=== PATIENT | female | born 1985 | race African-American/Black ===

== ENCOUNTER 2020-10-31 19:50 | Inpatient (IN) | payer OTHER ==
[2020-10-31 21:00] VITALS: BMI 24.0
[2020-10-31 21:28] LABS: BASO % 0.3 % (0-2.0); EOS % 0.1 % (0-4.5); HEMATOCRIT 27.2 % (32.4-45.2); HEMOGLOBIN 8.6 GM/dL (10.7-15.3); LYMPH % 15.1 % (8-40); MCH 25.3 pg (25.7-33.7); MCHC 31.6 g/dl (32.0-36.0); MEAN CELL VOLUME 80.2 fl (80-96); MEAN PLT VOLUME 8.7 fl (7.5-11.1); MONO % 7.9 % (3.8-10.2); NEUT % 76.6 % (42.8-82.8); PLATELET COUNT 227 10^3/uL (134-434); RDW 14.7 % (11.6-15.6); WHITE BLOOD COUNT 9.2 K/mm3 (4.0-10.0)
[2020-10-31 21:41] LABS: INR 0.95 (0.83-1.09); PROTHROMBIN TIME (PATIENT) 11.5 SEC (9.7-13.0)
[2020-10-31 21:44] LABS: ACTIVATED PTT 24.1 SECONDS (25.2-36.5)
[2020-10-31 21:53] LABS: ALBUMIN 2.8 g/dl (3.4-5.0); CALCIUM 8.2 mg/dL (8.5-10.1)
[2020-10-31 21:54] LABS: BLOOD UREA NITROGEN 7.6 mg/dL (7-18)
[2020-10-31 21:57] LABS: CREATININE 0.5 mg/dL (0.55-1.3)
[2020-10-31 21:58] LABS: BILIRUBIN,TOTAL 0.7 mg/dL (0.2-1); TOT PROT 6.6 g/dl (6.4-8.2)
[2020-10-31] MEDS ORDERED: DEXTROSE 5%-LACTATED RINGERS 1,000 ML IV SCH (22:15)
[2020-10-31 22:18] LABS: SYPHILIS W/ RPR CONF NON-REACTIVE (NONREACTIVE)
[2020-10-31] MEDS ORDERED: IRON SUCROSE INJECTION 300 MG in SODIUM CHLORIDE 235 ML IVPB ONE (22:18)
[2020-10-31 22:47] LABS: HIV INTERPRETATION NEGATIVE (NEGATIVE)
[2020-10-31] MEDS ORDERED: DINOPROSTONE 10 MG VAGINAL SUPPOSITORY VG ONE (22:54)
[2020-11-01] MEDS ORDERED: BUTORPHANOL TARTRATE 1 MG/ML VIAL IVPB ONE (09:12)
[2020-11-01] MEDS ORDERED: PROMETHAZINE HCL 25 MG/1 ML VIAL IVPB ONE (09:13)
[2020-11-01] MEDS ORDERED: DEXTROSE 5%-LACTATED RINGERS 1,000 ML IV SCH (09:15)
[2020-11-01] MEDS ORDERED: BUTORPHANOL TARTRATE 2 MG/ML VIAL ONE (09:18)
[2020-11-01] MEDS ORDERED: PROMETHAZINE HCL 25 MG/1 ML VIAL ONE (09:19)
[2020-11-01] MEDS ORDERED: NALOXONE HCL 0.4 MG/ML VIAL IVPUSH PRN (11:20)
[2020-11-01] MEDS ORDERED: FENTANYL/BUPIVACAINE/NS/PF - PCEA - 50 ML DISP.SYRIN EP ONE (11:21)
[2020-11-01] MEDS ORDERED: BUPIVACAINE HCL/PF 0.25% (2.5MG/ML) 10 ML VIAL ONE (11:23)
[2020-11-01] MEDS ORDERED: FENTANYL/BUPIVACAINE/NS/PF - PCEA - 50 ML DISP.SYRIN EP SCH (11:30)
[2020-11-01] MEDS ORDERED: LIDOCAINE HCL 1% PRESERVATIVE FREE - 30ML VIAL ONE (13:31)
[2020-11-01] MEDS ORDERED: OXYTOCIN 20 UNITS in 0.9% NS 20 UNIT/1,000 ML INFUS.BAG IV ONE (13:31)
[2020-11-01] MEDS ORDERED: BENZOCAINE 20% 57 GM BOTTLE TP PRN (15:22)
[2020-11-01] MEDS ORDERED: ACETAMINOPHEN 325 MG TABLET (FP) PO PRN (15:22)
[2020-11-01] MEDS ORDERED: IBUPROFEN 600 MG TABLET (FP) PO PRN (15:22)
[2020-11-01] MEDS ORDERED: BENZOCAINE 28 GM HEMORRHOIDAL OINTMENT TP PRN (15:22)
[2020-11-01] MEDS ORDERED: WITCH HAZEL 50% (TUCKS) 40 PAD/JAR PAD TP PRN (15:22)
[2020-11-01] MEDS ORDERED: OXYTOCIN 20 UNITS in 0.9% NS 1000 ML INFUS.BAG IV ONE (15:24)
[2020-11-01] MEDS ORDERED: OXYTOCIN 20 UNITS in 0.9% NS 20 UNIT/1,000 ML INFUS.BAG IV SCH (15:30)
[2020-11-02 08:38] LABS: BASO % 0.4 % (0-2.0); EOS % 0.5 % (0-4.5); HEMATOCRIT 26.2 % (32.4-45.2); HEMOGLOBIN 8.1 GM/dL (10.7-15.3); LYMPH % 17.4 % (8-40); MCH 24.9 pg (25.7-33.7); MCHC 30.8 g/dl (32.0-36.0); MEAN CELL VOLUME 80.8 fl (80-96); MEAN PLT VOLUME 8.8 fl (7.5-11.1); MONO % 9.1 % (3.8-10.2); NEUT % 72.6 % (42.8-82.8); PLATELET COUNT 210 10^3/uL (134-434); RBC 3.24 M/mm3 (3.60-5.2); RDW 15.1 % (11.6-15.6); WHITE BLOOD COUNT 11.9 K/mm3 (4.0-10.0)
[2020-11-03 09:10] VITALS: BP 99/59; PULSE 64; TEMP 98
== END 2020-11-03 11:40 | disposition home or self-care (01) | DRG 560 ==
LOC: JLDR 19:50 → OBSVTOIN 19:50 → JLDR 11-01 08:20 → J3W 11-01 15:10
PROVIDERS: ADMIT Obstetrics & Gynecology Maternal & Fetal Medicine; ATTEND Obstetrics & Gynecology Maternal & Fetal Medicine
PROC: 3E0P7VZ Introduction of Hormone into Female Reproductive, Via Natural or Artificial Opening (ICD-10-PCS; 2020-10-31)
PROC: 10907ZC Drainage of Amniotic Fluid, Therapeutic from Products of Conception, Via Natural or Artificial Opening (ICD-10-PCS; principal; 2020-11-01)
PROC: 10E0XZZ Delivery of Products of Conception, External Approach (ICD-10-PCS; 2020-11-01)
DX: O36.8190 Decreased fetal movements, unspecified trimester, not applicable or unspecified (principal); Z3A.39 39 weeks gestation of pregnancy; Z37.0 Single live birth; O99.03 Anemia complicating the puerperium; D64.9 Anemia, unspecified
CPT/HCPCS: 36415; 59409; 80053; 85025; 85610; 85730; 86762; 86780; 86850; 86900; 86901; 87340; 87389; C9803; J1756; U0003; U0005

== ENCOUNTER 2022-01-16 13:57 | Emergency (ER) | payer OTHER ==
[2022-01-16 14:15] VITALS: BP 125/67; PULSE 75; RESP 18; TEMP 97.9; BMI 25.2
[2022-01-16] MEDS ORDERED: ACETAMINOPHEN 325 MG TABLET (FP) PO ONE (15:36)
[2022-01-16 15:47] LABS: EPI CELLS >36 /uL (0-25.1); HYALINE CASTS 0 /uL (0-3.1); PH,URINE 8.5 (5.0-8.0); URINE APPEARANCE CLEAR; URINE BACTERIA 1250 /uL (0-1359); URINE BILIRUBIN NEGATIVE (NEGATIVE); URINE COLOR YELLOW; URINE GLUCOSE (UA) NEGATIVE (NEGATIVE); URINE KETONE NEGATIVE (NEGATIVE); URINE LEUK ESTERASE 3+ (NEGATIVE); URINE NITRITE NEGATIVE (NEGATIVE); URINE PROTEIN NEGATIVE (NEGATIVE); URINE RBC 2 /uL (0-23.9); URINE WBC 56 /uL (0-25.8)
[2022-01-16] MEDS ORDERED: ACETAMINOPHEN 325 MG TABLET (FP) ONE (16:27)
[2022-01-16 18:01] LABS: URINE APPEARANCE CLEAR; URINE BILIRUBIN NEGATIVE (NEGATIVE); URINE COLOR YELLOW; URINE GLUCOSE (UA) NEGATIVE (NEGATIVE); URINE KETONE NEGATIVE (NEGATIVE); URINE LEUK ESTERASE NEGATIVE (NEGATIVE); URINE NITRITE NEGATIVE (NEGATIVE); URINE PROTEIN NEGATIVE (NEGATIVE)
== END 2022-01-16 17:39 | disposition home or self-care (01) ==
LOC: JER 13:57
DX: O26.892 Other specified pregnancy related conditions, second trimester (principal); R10.9 Unspecified abdominal pain; Z3A.19 19 weeks gestation of pregnancy
CPT/HCPCS: 76775-TC; 76801-TC; 81003; 87086; 99285-25

== ENCOUNTER 2022-06-01 19:35 | Inpatient (IN) | payer OTHER ==
[2022-06-01 20:18] VITALS: BMI 24.3
[2022-06-01] MEDS: DEXTROSE 5%-LACTATED RINGERS 1,000 ML IV SCH (21:10)
[2022-06-01] MEDS: MISOPROSTOL 100 MCG TABLET PV SCH (21:25)
[2022-06-01 22:04] LABS: BASO % 0.3 % (0-2.0); EOS % 0.4 % (0-4.5); HEMATOCRIT 28.5 % (32.4-45.2); HEMOGLOBIN 9.2 GM/dL (10.7-15.3); LYMPH % 16.9 % (8-40); MCH 28.4 pg (25.7-33.7); MCHC 32.2 g/dl (32.0-36.0); MEAN CELL VOLUME 88.3 fl (80-96); MEAN PLT VOLUME 9.5 fl (7.5-11.1); MONO % 8.9 % (3.8-10.2); NEUT % 73.5 % (42.8-82.8); PLATELET COUNT 196 10^3/uL (134-434); RBC 3.23 M/mm3 (3.60-5.2); RDW 13.4 % (11.6-15.6); WHITE BLOOD COUNT 8.5 K/mm3 (4.0-10.0)
[2022-06-01 22:11] LABS: INR 0.97 (0.83-1.09); PROTHROMBIN TIME (PATIENT) 11.2 SEC (9.7-13.0)
[2022-06-01 22:14] LABS: ACTIVATED PTT 24.7 SECONDS (25.2-36.5)
[2022-06-01 22:23] LABS: CALCIUM 8.3 mg/dL (8.5-10.1)
[2022-06-01 22:25] LABS: BLOOD UREA NITROGEN 9.6 mg/dL (7-18)
[2022-06-01 22:27] LABS: CREATININE 0.6 mg/dL (0.55-1.3)
[2022-06-01] MEDS ORDERED: PENICILLIN G POTASSIUM 20,000,000 (20Mm) UNITS VIAL IVPB ONE (23:41)
[2022-06-01] MEDS: PENICILLIN G POTASSIUM 5,000,000 (5Mm) UNIT VIAL IVPB SCH (23:45)
[2022-06-02] MEDS: DEXTROSE 5%-LACTATED RINGERS 1,000 ML IV SCH (04:00)
[2022-06-02] MEDS: PENICILLIN G POTASSIUM 5,000,000 (5Mm) UNIT VIAL IVPB SCH ×2 (04:20→15:05)
[2022-06-02] MEDS ORDERED: FENTANYL CITRATE/PF 50 MCG/ML VIAL ONE (06:35)
[2022-06-02] MEDS ORDERED: BUPIVACAINE HCL/PF 0.25% (2.5MG/ML) 10 ML VIAL ONE (06:35)
[2022-06-02] MEDS ORDERED: SODIUM CHLORIDE 1,000 ML IV STA (06:36)
[2022-06-02] MEDS ORDERED: FENTANYL/BUPIVACAINE/NS/PF - PCEA - 50 ML DISP.SYRIN EP ONE (06:38)
[2022-06-02] MEDS ORDERED: NALOXONE HCL 0.4 MG/ML VIAL IVPUSH PRN (07:04)
[2022-06-02] MEDS ORDERED: FENTANYL/BUPIVACAINE/NS/PF - PCEA - 50 ML DISP.SYRIN EP SCH (07:15)
[2022-06-02] MEDS ORDERED: OXYTOCIN 20 UNITS in 0.9% NS 20 UNIT/1,000 ML INFUS.BAG IV ONE ×2 (07:22→09:26)
[2022-06-02] MEDS ORDERED: WITCH HAZEL 50% (TUCKS) 40 PAD/JAR PAD TP PRN (08:56)
[2022-06-02] MEDS ORDERED: BENZOCAINE 28 GM HEMORRHOIDAL OINTMENT TP PRN (08:56)
[2022-06-02] MEDS ORDERED: BENZOCAINE 20% 57 GM BOTTLE TP PRN (08:56)
[2022-06-02] MEDS ORDERED: IBUPROFEN 600 MG TABLET (FP) PO PRN (08:56)
[2022-06-02] MEDS ORDERED: ACETAMINOPHEN 325 MG TABLET (FP) PO PRN (08:56)
[2022-06-02] MEDS ORDERED: OXYTOCIN 20 UNITS in 0.9% NS 20 UNIT/1,000 ML INFUS.BAG IV SCH (09:00)
[2022-06-02 09:14] LABS: CORD BASE EXCESS -8.3 mmol/L (0-2); CORD HCO3 22.4 mmHg (20-29); CORD PCO2 67.1 mmHg (30-78); CORD pH 7.141 (7.14-7.44)
[2022-06-02 09:17] LABS: CORD BASE EXCESS -3.9 mmol/L (0-2); CORD HCO3 21.7 mmHg (20-29); CORD PCO2 41.7 mmHg (30-78); CORD pH 7.335 (7.14-7.44)
[2022-06-02] MEDS: PRENATAL VITAMINS W/ FOLIC ACID TABLET (FP) PO SCH (11:45)
[2022-06-02] MEDS: FERROUS SO4 325 MG TABLET (FP) PO SCH ×2 (12:06→17:56)
[2022-06-02] MEDS: MISOPROSTOL 100 MCG TABLET PV SCH (15:05)
[2022-06-03 08:30] LABS: BASO % 0.4 % (0-2.0); EOS % 1.1 % (0-4.5); HEMATOCRIT 28.9 % (32.4-45.2); HEMOGLOBIN 9.3 GM/dL (10.7-15.3); LYMPH % 17.9 % (8-40); MCH 28.4 pg (25.7-33.7); MCHC 32.1 g/dl (32.0-36.0); MEAN CELL VOLUME 88.5 fl (80-96); MEAN PLT VOLUME 9.7 fl (7.5-11.1); MONO % 7.7 % (3.8-10.2); NEUT % 72.9 % (42.8-82.8); PLATELET COUNT 185 10^3/uL (134-434); RBC 3.26 M/mm3 (3.60-5.2); RDW 13.4 % (11.6-15.6); WHITE BLOOD COUNT 8.6 K/mm3 (4.0-10.0)
[2022-06-03] MEDS: FERROUS SO4 325 MG TABLET (FP) PO SCH ×3 (09:00→17:14)
[2022-06-03] MEDS: PRENATAL VITAMINS W/ FOLIC ACID TABLET (FP) PO SCH (09:14)
[2022-06-03] MEDS ORDERED: SENNOSIDES/DOCUSATE COMBO (SENNA PLUS) TABLET (UD) PO PRN (22:00)
[2022-06-04 07:55] VITALS: BP 107/68; PULSE 78; RESP 16; TEMP 98.5
[2022-06-04] MEDS: FERROUS SO4 325 MG TABLET (FP) PO SCH ×2 (08:55→12:20)
[2022-06-04] MEDS: PRENATAL VITAMINS W/ FOLIC ACID TABLET (FP) PO SCH (08:59)
== END 2022-06-04 16:19 | disposition home or self-care (01) | DRG 560 ==
LOC: JLDR 19:35 → J3W 06-02 10:40
PROVIDERS: ADMIT Obstetrics & Gynecology Maternal & Fetal Medicine; ATTEND Obstetrics & Gynecology Maternal & Fetal Medicine
PROC: 3E0P7VZ Introduction of Hormone into Female Reproductive, Via Natural or Artificial Opening (ICD-10-PCS; 2022-06-01)
PROC: 10E0XZZ Delivery of Products of Conception, External Approach (ICD-10-PCS; principal; 2022-06-02)
DX: O99.824 Streptococcus B carrier state complicating childbirth (principal); Z3A.39 39 weeks gestation of pregnancy; Z37.0 Single live birth; Z87.768 Personal history of other specified (corrected) congenital malformations of integument, limbs and musculoskeletal system
CPT/HCPCS: 36415; 36600; 59409; 80048; 82803; 85025; 85610; 85730; 86780; 86850; 86900; 86901; 88307-TC; C9803-CS; U0003; U0005

== ENCOUNTER 2023-12-31 04:22 | Day surgery (SDC) | payer OTHER ==
[2023-12-30 11:43] VITALS: BMI 17.8
[2023-12-31] MEDS: ceFAZolin SODIUM 1 GM VIAL IVPB ONE
[2023-12-31 10:02] LABS: BASO % 0.7 % (0-2.0); EOS % 0.9 % (0-4.5); HEMATOCRIT 38.6 % (32.4-45.2); HEMOGLOBIN 13.2 GM/dL (10.7-15.3); LYMPH % 28.9 % (8-40); MCH 31.8 pg (25.7-33.7); MCHC 34.2 g/dl (32.0-36.0); MEAN CELL VOLUME 92.9 fl (80-96); MONO % 6.9 % (3.8-10.2); NEUT % 62.6 % (42.8-82.8); PLATELET COUNT 216 10^3/uL (134-434); RBC 4.15 M/mm3 (3.60-5.2); RDW 12.9 % (11.6-15.6); WHITE BLOOD COUNT 5.5 K/mm3 (4.0-10.0)
[2023-12-31 10:04] LABS: INR 1.13 (0.83-1.09)
[2023-12-31 10:30] LABS: CHLORIDE 106 mmol/L (98-107); POTASSIUM 4.8 mmol/L (3.5-5.1); SODIUM 139 mmol/L (136-145)
[2023-12-31 10:32] LABS: ALBUMIN 3.9 g/dl (3.4-5.0); ANION GAP 5 mmol/L (4-13); BLOOD UREA NITROGEN 10.8 mg/dL (7-18); CALCIUM 9.5 mg/dL (8.5-10.1); CO2 27 mmol/L (21-32)
[2023-12-31 10:33] LABS: GLUCOSE,RANDOM 70 mg/dL (74-106)
[2023-12-31 10:35] LABS: SGOT/AST 12 U/L (15-37); SGPT/ALT 12 U/L (13-61)
[2023-12-31 10:37] LABS: BILIRUBIN,TOTAL 1.1 mg/dL (0.2-1); CREATININE 0.6 mg/dL (0.55-1.3)
[2023-12-31 10:38] LABS: TOT PROT 7.1 g/dl (6.4-8.2)
[2023-12-31 10:40] LABS: ALK PHOS 35 U/L (45-117)
[2023-12-31] MEDS ORDERED: PROPOFOL 20 ML ONE ×2 (12:12→12:16)
[2023-12-31] MEDS ORDERED: MIDAZOLAM HCL 2 MG/2 ML SINGLE DOSE VIAL ONE (12:12)
[2023-12-31] MEDS ORDERED: ONDANSETRON 4 MG/2 ML VIAL IVPUSH PRN (13:40)
[2023-12-31] MEDS ORDERED: LACTATED RINGERS SOLUTION 1,000 ML IV SCH (13:45)
[2023-12-31 16:53] VITALS: RESP 18
[2023-12-31 17:13] VITALS: BP 100/60; PULSE 73; TEMP 97.9
== END 2023-12-31 15:50 | disposition home or self-care (01) ==
LOC: JASU-SURG 04:22
PROVIDERS: ATTEND Obstetrics & Gynecology Maternal & Fetal Medicine
PROC: 0UPD8HZ Removal of Contraceptive Device from Uterus and Cervix, Via Natural or Artificial Opening Endoscopic (ICD-10-PCS; principal; 2023-12-31 11:00)
DX: T83.89XA Other specified complication of genitourinary prosthetic devices, implants and grafts, initial encounter (principal)
CPT/HCPCS: 36415; 80053; 81025; 84702; 85025; 85610; 86850; 86900; 86901; 88300-TC; 94760

== ENCOUNTER 2025-01-01 16:55 | Inpatient (IN) | payer OTHER ==
[2025-01-01 17:52] VITALS: BMI 24.0
[2025-01-01 18:20] LABS: RDW 12.7 % (12.1-16.8)
[2025-01-01 18:21] LABS: ABSOLUTE IMMATURE GRANULOCYTES 0.03 x10^3/uL (0.0-0.031); BASOPHILS # 0.03 x10^3/uL (0.01-0.08); EOSINOPHIL % 0.0 % (0.7-5.8); EOSINOPHILS # 0.00 x10^3/uL (0.04-0.36); MCHC 30.2 g/dl (32.2-35.5); MEAN CELL VOLUME 88.7 fl (79.4-94.8); MEAN PLT VOLUME 11.4 fl (9.4-12.3); MONOCYTE # 0.66 x10^3/uL (0.24-0.86); MONOCYTE % 8.1 % (4.7-12.5)
[2025-01-01 18:28] LABS: INR 1.01 (0.83-1.09); PROTHROMBIN TIME (PATIENT) 11.0 SEC (9.7-13.0)
[2025-01-01 18:31] LABS: ACTIVATED PTT 24.7 SECONDS (25.2-36.5)
[2025-01-01 19:33] LABS: HCV DIAGNOSTIC IN-HOUSE W/RFLX NON-REACTIVE (NONREACTIVE); HIV INTERPRETATION NEGATIVE (NEGATIVE)
[2025-01-01] MEDS: DEXTROSE 5%-LACTATED RINGERS 1,000 ML IV SCH (20:15)
[2025-01-01] MEDS: MISOPROSTOL 25 MCG TABLET (COMPOUNDED BY PHARMACY) PV SCH (20:30)
[2025-01-01] MEDS: SODIUM CHLORIDE 1,000 ML IV STA (21:25)
[2025-01-01 21:37] LABS: GLUCOSE,RANDOM 78.0 mg/dL (74-106)
[2025-01-01 21:38] LABS: CO2 19.0 mmol/L (21-32)
[2025-01-01 21:42] LABS: CREATININE 0.55 mg/dL (0.55-1.3)
[2025-01-02] MEDS: SODIUM CHLORIDE 500 ML IV STA (02:15)
[2025-01-02] MEDS ORDERED: FENTANYL/BUPIVACAINE/NS/PF - PCEA - 50 ML DISP.SYRIN EP ONE (03:10)
[2025-01-02] MEDS: SODIUM CHLORIDE 1,000 ML IV STA (03:15)
[2025-01-02] MEDS ORDERED: NALOXONE HCL 0.4 MG/ML VIAL IVPUSH PRN (03:19)
[2025-01-02] MEDS: FENTANYL/BUPIVACAINE/NS/PF - PCEA - 50 ML DISP.SYRIN EP SCH (03:40)
[2025-01-02] MEDS ORDERED: OXYTOCIN 20 UNITS in 0.9% NS 20 UNIT/1,000 ML INFUS.BAG IV ONE (04:01)
[2025-01-02] MEDS: OXYTOCIN 20 UNITS in 0.9% NS 20 UNIT/1,000 ML INFUS.BAG IV SCH (04:22)
[2025-01-02] MEDS ORDERED: OXYTOCIN 10 UNITS/ML VIAL ONE (04:24)
[2025-01-02] MEDS: OXYTOCIN 10 UNITS/ML VIAL IM ONE (04:26)
[2025-01-02] MEDS ORDERED: BENZOCAINE 28 GM HEMORRHOIDAL OINTMENT TP PRN (04:50)
[2025-01-02] MEDS ORDERED: WITCH HAZEL 50% (TUCKS) 40 PAD/JAR PAD TP PRN (04:50)
[2025-01-02] MEDS ORDERED: DOCUSATE SODIUM 100 MG CAPSULE (FP) PO PRN (04:52)
[2025-01-02 05:11] LABS: CORD BASE EXCESS -4.6 mmol/L (0-2); CORD HCO3 22.2 mmHg (20-29); CORD PCO2 48.1 mmHg (30-78); CORD pH 7.282 (7.14-7.44)
[2025-01-02 05:23] LABS: CORD BASE EXCESS -7.4 mmol/L (0-2); CORD HCO3 20.9 mmHg (20-29); CORD PCO2 54.4 mmHg (30-78); CORD pH 7.203 (7.14-7.44)
[2025-01-02] MEDS: FERROUS SO4 325 MG TABLET (FP) PO SCH (09:38)
[2025-01-02] MEDS: ACETAMINOPHEN 325 MG TABLET (FP) PO PRN (09:41)
[2025-01-02] MEDS: IBUPROFEN 600 MG TABLET (FP) PO PRN (18:20)
[2025-01-03 08:05] LABS: ABSOLUTE IMMATURE GRANULOCYTES 0.05 x10^3/uL (0.0-0.031); BASOPHILS # 0.02 x10^3/uL (0.01-0.08); EOSINOPHIL % 0.7 % (0.7-5.8); EOSINOPHILS # 0.06 x10^3/uL (0.04-0.36); MCHC 30.4 g/dl (32.2-35.5); MEAN CELL VOLUME 89.5 fl (79.4-94.8); MEAN PLT VOLUME 11.7 fl (9.4-12.3); MONOCYTE # 0.82 x10^3/uL (0.24-0.86); MONOCYTE % 9.3 % (4.7-12.5); RDW 12.9 % (12.1-16.8)
[2025-01-03 23:02] VITALS: PULSE 70
[2025-01-04 10:24] VITALS: BP 117/82; RESP 18; TEMP 98.2
== END 2025-01-04 13:20 | disposition home or self-care (01) | DRG 560 ==
LOC: JLDR 16:55 → J3W 01-02 07:40
PROVIDERS: ADMIT Obstetrics & Gynecology Maternal & Fetal Medicine; ATTEND Obstetrics & Gynecology Maternal & Fetal Medicine
PROC: 10E0XZZ Delivery of Products of Conception, External Approach (ICD-10-PCS; principal; 2025-01-02)
DX: O80 Encounter for full-term uncomplicated delivery (principal); Z3A.37 37 weeks gestation of pregnancy; Z37.0 Single live birth
CPT/HCPCS: 36415; 36600; 59409; 80048; 82803; 85025; 85610; 85730; 86803; 86850; 86900; 86901; 87389; 88307-TC